=== PATIENT | male | born 2000 | race Two or more races ===

== ENCOUNTER 2018-06-29 13:18 | Emergency (ER) | payer BC ==
[2018-06-29 13:23] VITALS: BP 126/89
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
== END 2018-06-29 14:51 | disposition home or self-care (01) ==
DX: H53.451 Other localized visual field defect, right eye (principal); F17.200 Nicotine dependence, unspecified, uncomplicated